=== PATIENT | female | born 1975 | race Caucasian/White ===

== ENCOUNTER 2023-10-26 08:00 | Outpatient (RCR) | payer MEDICAID, SELFPAY ==
--- NOTE | 2023-10-26 09:05 | BH.SGPN.GN ---
Behaviors/Verbalizations/Mental Status: [] Eye contact is good. Motor activity is appropriate. Appearance is casual. Speech is Appropriate. Mood is anxious/depressed. Affect is congruent. Thoughts are linear and logical. No evidence of psychosis. Reviewed daily check in sheet and no reports of suicidal ideations or intent. Client Response/Progress/Benefit: [] Pt participated when prompted. This was pt?s first day in IOP level of care. She briefly introduced herself to the group. Reports struggles with isolation, avoidance, anxiety, and anger. She is hoping that she could increase her ability to regulate her emotions and decrease panic attacks. Shared how mental health struggles have negatively impacted her relationships and her functioning. Peers provided support, encouragement, and feedback for her first day in [facility] which was beneficial. Will continue in [facility] to prevent decompensation, stabilize mood, increase healthy coping, and improve functioning. Narrative Note: []
--- NOTE | 2023-10-26 10:10 | BH.SGPN.GN ---
Behaviors/Verbalizations/Mental Status: []Eye contact is fair. Motor activity is appropriate. Appearance is casual. Speech is Appropriate. Mood is anxious. Affect is congruent. Thoughts are linear and logical. No evidence of psychosis. Client Response/Progress/Benefit: [] Pt was an active participant in activity and taking notes during group discussion. Attentive during psychoeducation and interactive discussion on coping skills included why people use unhealthy skills. Group came up with list of unhealthy coping skills and pt identified personal ones as lashing out and avoidance. Group discussed the effects of how unhealthy coping skills can impact mental health in a negative way. Participated during experiential activity and was able to relate the activity to group topic regarding the benefits of developing strong internal and external support system. Benefited from increased understanding of unhealthy coping skills and the need for developing healthy internal and external coping skills. Pt will continue IOP tx to improve emotion regulation, decrease anxious avoidance, and prevent decompensation.
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
--- NOTE | 2023-10-26 10:25 | BH.MTP ---
Master Treatment Plan Patient Information Program Physician:: Dr. Doherty Primary Therapist:: Tiffanie Devine [facility] Psychiatric Diagnoses Psychiatric Diagnoses:: 1. Bipolar 2 disorder 2. Panic attacks 3. PTSD Diagnosis Code(s):: F31.81 Estimated LOS Estimated LOS (in weeks):: 6 Problem/Goal #1 Problem/Goal #1 Stated Goal:: Client will reduce depressive symptoms, anger/irritability, and anhedonia due to Major Depressive Disorder through Intensive Outpatient Program. Description of Barriers: Pt has history of not responding well to medications. Additional potential barriers is limited healthy supports, agitation, negative thoughts, and anxious thoughts. Functional Impact: The patient is a 48-year-old female with a history of bipolar 2 disorder, depression and alcohol use disorder (sober x 3 years) who was referred to the [facility] behavioral health IOP by a her psychiatric nurse practitioner for worsening symptoms of irritability, erratic mood, anger and depression. She endorses sadness, crying spells, hopelessness, worthlessness, no motivation, isolation and the symptoms have gone on for 16 months. She endorses irritability, decreased concentration, guilt, passive thoughts of . She is a worrier by nature and ruminates negatively. She has panic attacks less than once a week. Objectives Objective #1: Stated Objective: Client will learn and utilize 2-3 healthy coping strategies to manage depressive symptoms. Interventions: Therapist will utilize CBT techniques to assist client with understanding the connection between thoughts, feelings and behaviors. Education will be provided on behavioral activation. Therapist will assist client in learning internal coping strategies to manage depressive symptoms, along with helping client identify triggers. Discharge Criteria: Client will have achieved this goal when can verbalize and has practiced at least 2 healthy coping strategies that successfully manage depressive symptoms. Target Date: 12/07/23 Review Date: 11/23/23 Objective #2: Stated Objective: Client will identify 5 physical warning signs of anger and 5 ways to calm and manage anger. Interventions: Therapist will provide worksheet to track situations, thoughts, feelings, and actions associated with moments of anger, irritation, or disappointment. Through individual therapy and group work will help client explore warning signs to anger and ager management strategies. Discharge Criteria: Client will have met this goal after documenting anger journal for several weeks showing insight into anger triggers, warning signs, and effective ways to cope or manage anger. Target Date: 12/07/23 Review Date: 11/23/23 Problem/Goal #2 Problem/Goal #2 Stated Goal:: Stabilize anxiety level while increasing ability to function on daily basis. Description of Barriers: Pt has history of not responding well to medications. Additional potential barriers is limited healthy supports, agitation, negative thoughts, and anxious thoughts. Functional Impact: The patient is a 48-year-old female with a history of bipolar 2 disorder, depression and alcohol use disorder (sober x 3 years) who was referred to the [facility] behavioral health IOP by a her psychiatric nurse practitioner for worsening symptoms of irritability, erratic mood, anger and depression. She endorses sadness, crying spells, hopelessness, worthlessness, no motivation, isolation and the symptoms have gone on for 16 months. She endorses irritability, decreased concentration, guilt, passive thoughts of . She is a worrier by nature and ruminates negatively. She has panic attacks less than once a week. Objectives Objective #1: Stated Objective: Client will learn and implement 2-3 calming skills to reduce overall anxiety and manage anxiety symptoms. Interventions: Therapist and group sessions will help client identify physiological warning signs of anxiety, increase awareness of thoughts that increase anxiety, and identify behaviors that reinforce anxious symptoms. Group and individual counseling will teach client calming skills to help manage anxious symptoms. Discharge Criteria: Client will have achieved this goal when can verbalize at least 2 calming skills and reports skills successfully help reduce anxious symptoms. Target Date: 12/07/23 Review Date: 11/23/23 Objective #2: Stated Objective: Client will identify and replace 2-3 negative/anxious thinking patterns that reinforce irritability, depression and anxiety. Interventions: Through groups and individual therapy, pt will be provided with education on cognitive distortions, mistaken beliefs, and identifying and combating negative self-talk. Therapist will help pt explore connection between thoughts, feelings, and actions. Discharge Criteria: Pt will be able to identify 2-3 negative/anxious thinking patterns and be able to effectively stop, challenge, or cope with those thoughts. Target Date: 12/07/23 Review Date: 11/23/23
--- NOTE | 2023-10-26 10:40 | BH.COMM ---
Communication Note Communication with Client Communication Note: Met with pt to complete initial paperwork and administer the CSSR-S screening and risk assessment. Per CSSR-S screening and assessment pt is high risk as pt has history of aborted attempt via insulin 10 months ago. Pt states this was during a medication change that significantly increased her suicidal thoughts. Pt states in the past month she has had passive thoughts of , but denies any active suicidal thoughts. Pt reports she does not want to kill herself. No hx of self-harm. Pt states her boyfriend has a firearm, but she does not know where it is located. States she has no interest in firearms and has never considered this as an option. Discussed case with Dr. Garcia and pt will be admitted to [facility] tx with a diagnosis of Bipolar 2, F31.81.
--- NOTE | 2023-10-26 11:15 | BH.SGPN.GN ---
Behaviors/Verbalizations/Mental Status: []Pt alert and oriented, casually dressed and groomed. Eye contact good. Motor activity appropriate. Speech within normal limits. Affect congruent, mood depressed, anxious. Thoughts linear, logical, no signs of hallucinations or delusions. Client Response/Progress/Benefit: [] Pt responded well to session, taking notes and contributing when prompted. Group discussed the different categories of coping skills which included distraction, emotional release, grounding, self-love, and thought challenging. Pt participated in creating a coping skills ?menu? from the five categories of coping skills. Pt's coping skill menu included: exercise, journaling, 5-senses, accomplishment log, and decisional balance tool. Appeared to benefit from increasing repertoire of healthy coping skills. Will continue IOP to improve mood stability, challenge distortions, and prevent decompensation. Narrative Note: []
--- NOTE | 2023-10-28 10:10 | BH.SGPN.GN ---
Behaviors/Verbalizations/Mental Status: [] Eye contact is good. Motor activity is appropriate. Appearance is casual. Speech is Appropriate. Mood is anxious. Affect is congruent. Thoughts are linear and logical. No evidence of psychosis Client Response/Progress/Benefit: [] Client was an active participant during interactive group discussions. Attentive during psychoeducation on the six types of boundaries (physical, emotional, intellectual, sexual, time, and material) AEB note-taking and input in group discussions. Along with peers contributed to interactive discussion on defining what a boundary is in mental health. Client along with peers identified challenges to setting boundaries which included; fear of conflict, being uncomfortable, believing they are being rude or mean, etc. Reports struggling with fear of rejection or feeling she doesn?t deserve it. Client along with peers identified the benefits to setting boundaries such as healthier relationships, stronger sense of self, and improved confidence. Client benefited from increased awareness and insight on the importance/benefit to setting health boundaries. Will continue in IOP to prevent decompensation, increase healthy coping skills, and improve functioning. Narrative Note: []
--- NOTE | 2023-10-28 11:15 | BH.SGPN.GN ---
Behaviors/Verbalizations/Mental Status: [] Eye contact is good. Motor activity is appropriate. Appearance is casual. Speech is Appropriate. Mood is anxious and depressed. Affect is congruent. Thoughts are linear and logical. No evidence of psychosis. Client Response/Progress/Benefit: []Pt responded well to session AEB listening attentively to peers, providing some input, as well as taking notes throughout. Pt contributed throughout psychoeducation on different boundary setting styles. Participated in group discussion brainstorming various strategies for improving healthy boundary settings. Pt reported wanting to work on using positive self-talk to remind herself ?I can be a good friend and set boundaries.? ?Seemed to benefit from increased awareness of how different boundary styles can impact mental health. Will continue IOP tx to prevent use of unhealthy coping skills, increase support, and prevent decompensation. Narrative Note: []
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
--- NOTE | 2023-10-28 12:42 | BH.DR.ITP ---
Initial Treatment Plan Patient Information Visit Information: ADMISSION DATE: EXPECTED LOS: 4-6 weeks Problems/Symptoms Problem #1:: Erratic moods Symptom:: Sadness, crying spells, hopelessness, guilt, irritability, decreased concentration, passive thoughts of , low energy. Problem #2:: Anxiety Symptom:: Worry, rumination, panic attacks, flashbacks, nightmares, avoidance, hypervigilance
--- NOTE | 2023-10-29 10:10 | BH.SGPN.GN ---
Behaviors/Verbalizations/Mental Status: [] Client alert and oriented, casually dressed and groomed. Eye contact good. Motor activity appropriate. Speech within normal limits. Affect congruent, mood depressed/irritable. Thoughts linear, logical, no signs of hallucinations or delusions. Client Response/Progress/Benefit: [] Client was an active participant, AEB taking notes and providing input in group discussions and activities. Attentive during psychoeducation. Client engaged during interactive discussion in which the group defined self-care and discussed its benefits. Group discussed barriers to engaging in self-care. Group members together came up with guilt, time, urge to put others first, not knowing what to do for self-care,and perception that its unproductive as barriers to engage in self care. Client participated in small groups where they worked to identified and challenged common self-care ?myths?. Benefited from increased awareness of self-care, its benefits, and the consequences of not utilizing self-care strategies. Will continue IOP tx to prevent decompensation, stabilize mood, and increase coping strategies. Narrative Note: []
--- NOTE | 2023-10-29 11:10 | BH.SGPN.GN ---
Behaviors/Verbalizations/Mental Status: [] Client alert and oriented, casually dressed and groomed. Eye contact good. Motor activity appropriate. Speech within normal limits. Affect congruent, mood anxious. Thoughts linear, logical, no signs of hallucinations or delusions. Client Response/Progress/Benefit: [] Client engaged participant AEB completing self-assessment of current self care and providing input throughout discussion. Client completed worksheet identifying current self-care practices and what self-care activities client wants to start using. Client selected emotional self-care to begin practicing more consistently. Client plans to do this by expressing emotions in healthier way to her supports. Appeared to benefit from completing the self-care evaluation and gaining insights into current self-care practices, as well as identifying areas in which client would like to improve upon. Client will continue IOP tx to improve distress tolerance, challenge distortions, and prevent decompensation.
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
== END 2023-11-01 23:59 ==
LOC: BHIOP 08:00
PROVIDERS: Referring Provider Psychiatry & Neurology Psychiatry; Visit Provider Psychiatry & Neurology Psychiatry
DX: F31.81 Bipolar II disorder (principal); F41.0 Panic disorder [episodic paroxysmal anxiety]; F43.10 Post-traumatic stress disorder, unspecified; Z79.899 Other long term (current) drug therapy
CPT/HCPCS: 90792; H2012; H2020; S9480; 90837

== ENCOUNTER 2023-11-02 07:16 | Outpatient (RCR) | payer MEDICAID, SELFPAY ==
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
--- NOTE | 2023-11-02 10:10 | BH.SGPN.GN ---
Behaviors/Verbalizations/Mental Status: [] Pt alert and oriented, appropriate grooming/appearance. Eye contact good. Motor activity appropriate. Speech within normal limits. Affect congruent, mood euthymic. Thoughts linear, logical, no signs of hallucinations or delusions. Client Response/Progress/Benefit: [] Pt was an active participant in group discussions. Attentive during psychoeducation. Contributed during interactive discussions in which peers attempted to define crisis. Group identified examples of potential crisis. Group also worked together to identify unhealthy responses to crisis which included lashing out, isolation, self-harm, substance abuse, and sleep disturbances. Pt identified personal warning signs as migraines, yelling, and anxiety attacks. Benefited from increased understanding of crisis and awareness of personal responses to crisis. Pt will continue IOP tx to increasing healthy coping skills, improved self image, and prevent decompensation. Narrative Note: []
--- NOTE | 2023-11-02 11:10 | BH.SGPN.GN ---
Behaviors/Verbalizations/Mental Status: [] Pt alert and oriented, appropriate grooming/appearance. Eye contact good. Motor activity appropriate. Speech within normal limits. Affect congruent, mood euthymic. Thoughts linear, logical, no signs of hallucinations or delusions. Client Response/Progress/Benefit: [] Pt was an active participant in group discussions. Attentive during psychoeducation. In small group pt along with peers developed an active plan for their crisis warning signs. Pt identified three crisis warning signs as well as an action plan for each. One crisis warning sign was feeling snappy. Pt identified coping skills to help with this such as: think positive thoughts, process thoughts, and practice gratitude. Benefited from increased awareness of crisis warning signs and by developing crisis intervention strategies. Will continue in IOP to prevent decompensation and improve daily functioning. Narrative Note: []
--- NOTE | 2023-11-03 09:05 | BH.SGPN.GN ---
Behaviors/Verbalizations/Mental Status: [] Eye contact is good. Motor activity is appropriate. Appearance is casual. Speech is Appropriate. Mood is depressed and anxious. Affect is congruent. Thoughts are linear and logical. No evidence of psychosis. Reviewed daily check in sheet and pt reports 3/5 for suicidal thoughts and 0/5 for intent. Client Response/Progress/Benefit: [] ?Pt participated at times during the group discussion. Attentive. Daily symptom tracker notes 5/5 for anxiety and depression. Brief check-in this AM. Share recent anxiety inducing events and how she responded. States ? I made it through?. Progress noted. Benefited from group support, encouragement, and feedback. Will continue in IOP to maintain safety, stabilize mood, increase healthy coping, and improve functioning. Narrative Note: []
--- NOTE | 2023-11-03 10:10 | BH.SGPN.GN ---
Behaviors/Verbalizations/Mental Status: []Pt alert and oriented, causally dressed and groomed. Eye contact fair. Motor activity appropriate. Speech within normal limits. Affect congruent, mood anxious. Thoughts linear, logical, no signs of hallucinations or delusions. Client Response/Progress/Benefit: [] Pt was actively engaged, providing input, and taking notes throughout session. Connected with the topic of pitfalls and listened to group discussion on internal and external barriers that prevent from choosing a healthier path to mental wellness. Group worked together to identify examples of personal internal pitfalls. Engaged in activity and worked cooperatively with peers. Shared personal pitfalls to include self-doubt, not asking for help, desire to quit, and quick to react. Pt engaged in learning about the difference between external triggers and self-sabotaging behaviors. Seemed to benefit from increased awareness of personal pitfalls. Pt will continue IOP tx to challenge distortions, improve distress tolerance, and prevent decompensation.
--- NOTE | 2023-11-03 11:15 | BH.SGPN.GN ---
Behaviors/Verbalizations/Mental Status: []Pt alert and oriented, casually dressed and groomed. Eye contact good. Motor activity appropriate. Speech within normal limits. Affect congruent, mood dysthymic. Thoughts linear, logical, no signs of hallucinations or delusions. Client Response/Progress/Benefit: [] Pt receptive of session, engaged throughout AEB actively contributing and listening to discussion, as well as taking notes. Pt participated in the experiential activity and processed with group how their emotions, perspective, and reactions positively and negatively impacted the outcome. Pt identified pitfalls they struggle with and shared wanting to work on pitfall of negative thinking by practicing regular thought challenging and taking a step back to process first. Benefited from identifying personal pitfalls and strategies to overcome these pitfalls. Will continue IOP tx to prevent decompensation, improve daily functioning, and improve distress tolerance skills application. Narrative Note: []
--- NOTE | 2023-11-04 10:10 | BH.SGPN.GN ---
Behaviors/Verbalizations/Mental Status: [] Eye contact is good. Motor activity is appropriate. Appearance is casual. Speech is Appropriate. Mood is euthymic. Affect is congruent. Thoughts are linear and logical. No evidence of psychosis. Client Response/Progress/Benefit: [] Pt receptive to session AEB contributing to small group discussion, as well as listening attentively to others, and taking notes. Worked with group to brainstorm the positive and negative aspects of stress on physical and mental health as well as the impact of distress on performance, relationships, and mental health. Pt shared her top stressors to be: maintaining sobriety, health, taking care of her cats, and friends/family. Shared when feeling overwhelmed with stress she tends to lash out, becomes paranoid, and stops doing self-care activities. Benefited from increased awareness of positive and negative stress as well as how stress impact individuals. Will continue in IOP to promote use of healthy coping skills, challenge distortions, and prevent decompensation.
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
--- NOTE | 2023-11-10 09:05 | BH.SGPN.GN ---
Behaviors/Verbalizations/Mental Status: [] Eye contact is good. Motor activity is appropriate. Appearance is casual. Speech is Appropriate. Mood is euthymic. Affect is full. Thoughts are linear and logical. No evidence of psychosis. Reviewed daily check in sheet and pt reports 2/5 for suicidal thoughts and 0/5 for intent. Client Response/Progress/Benefit: [] Pt was an active participant in group discussions. Attentive. Emotion for today is ?anxious? Daily symptom tracker notes 4/5 for anxiety and 3/5 for depression. Pt was unable to identify any wins or healthy habits. States ? I?m inpatient and just want to be better?. Irritability and overwhelmed. Able to identify progress since entering IOP from ? the classes? as well as support, however reports that her irritability and anxiety continue to impact her functioning. She gave recent examples. Benefited form group support, encouragement, and feedback. Will continue in IOP to maintain safety, stabilize mood, and improve functioning Narrative Note: []
--- NOTE | 2023-11-10 10:20 | BH.SGPN.GN ---
Behaviors/Verbalizations/Mental Status: []Pt alert and oriented, casually dressed and groomed. Eye contact fair. Motor activity appropriate. Speech within normal limits. Affect congruent, mood anxious. Thoughts linear, logical, no signs of hallucinations or delusions. Client Response/Progress/Benefit: [] Pt responded well to session, contributing to discussion, and engaged during the activity. Group identified the benefits of change which included: increased confidence, improving mental health, and making progress. Worked with the group to identify barriers to change, which included: uncomfortable emotions such as anxiety and fear, lack of energy, worried about what others will think, and fear of the unknown. Pt participated along with group in activity where they identified and discussed the emotions related to change. Pt connected with peers that one can have many conflicting emotions when faced with change. Benefited from increased awareness and understanding of emotions, benefits, and barriers related to change. Will continue IOP tx to improve distress tolerance, challenge distortions, and prevent decompensation.
--- NOTE | 2023-11-10 11:15 | BH.SGPN.GN ---
Behaviors/Verbalizations/Mental Status: [] Client alert and oriented, casually dressed and groomed. Eye contact good. Motor activity appropriate. Speech within normal limits. Affect congruent, mood content. Thoughts linear, logical, no signs of hallucinations or delusions. Client Response/Progress/Benefit: [] Client responded well to session, attentive throughout. Did well to actively listen and contributed when prompted as group worked to process activity. Pt worked with group to relate the strategies used to overcome barriers in the activity to managing change in own life. Client identified a change they would like to make is improving her relationships. Client identified currently being in precontemplative stage for this particular change. Client said reaching out to her supports and communicating this can help get her to next stage. Appeared to benefit from identifying a change they want and how to progress. Client will continue IOP tx to prevent decompensation, gain healthy coping skills, and improve daily functioning. Narrative Note: []
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
--- NOTE | 2023-11-11 10:00 | BH.SGPN.GN ---
Behaviors/Verbalizations/Mental Status: [] Eye contact is good. Motor activity is appropriate. Appearance is casual. Speech is Appropriate. Mood is depressed and anxnious. Affect is congruent. Thoughts are linear and logical. No evidence of psychosis. Client Response/Progress/Benefit: [] Pt was an active participant in group discussions. Attentive. Participated in and was engaged during experiential activity. Able to relate experiential activity to group topic of FOF. Enagaged during interactive discussion on what failure means to the group in which peers identified and defined failure and Fear of Failure. Engaged as group was able to identify impact of fear of failure on mental health identifying that it can lead to; giving up, isolation, complacency, self-sabotage, being hesitant to ask for help, and the self-fulfilling prophecy. Attentive during interactive discussion on the impact that FOF can have on mental wellness, depression, anxiety, career, relationships, and growth. Benefited from increased awareness of how the role that FOF plays in mental health and decision-making. Will continue in IOP to prevent decompensation, maintain safety, increase healthy coping, and improve functioning. Narrative Note: []
--- NOTE | 2023-11-11 11:05 | BH.SGPN.GN ---
Behaviors/Verbalizations/Mental Status: []Pt alert and oriented, neatly dressed and groomed. Eye contact good. Motor activity appropriate. Speech within normal limits. Affect congruent, mood agitated and anxious. Thoughts linear, logical, no signs of hallucinations or delusions. Client Response/Progress/Benefit: []Pt responded well to session, engaged in the experiential activity and attentive throughout group processing. Pt reported fear of failure has kept pt from being around her family. Pt completed fear of failure worksheet and was able to identify thoughts and behaviors that reinforce personal fear of failure including fear of letting people down, lack of self-care, and fear of being embarrassed. Pt participated in group discussion regarding strategies to overcome fear of failure. Identified wanting to work on communicating with others in a healthier way. Appeared to benefit from increased knowledge of strategies to combat fear of failure and gaining self-awareness. Pt will continue IOP tx to promote mood stability, reduce anger, and improve emotional regulation skills. Narrative Note: []
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
--- NOTE | 2023-11-12 10:10 | BH.SGPN.GN ---
Behaviors/Verbalizations/Mental Status: [] Eye contact is good. Motor activity is appropriate. Appearance is casual. Speech is Appropriate. Mood is anxious, content. Affect is congruent. Thoughts are linear and logical. No evidence of psychosis. Client Response/Progress/Benefit: [] Pt receptive of session, actively engaged throughout AEB taking notes, providing input, and contributing in small group discussion. Appeared to connect with group topic of automatic thoughts and cognitive distortions, as well as the impact of thought patterns on mental health, coping behaviors, and relationships. This particular group is very heavy on psychoeducation and pt appeared to connect with distortions and how they can impact functioning. Identified struggling with predicting the future and disqualifying the positives distortions. Pt appeared to benefit from gaining insight on distorted thinking patterns and how this impacts overall mental health. Will continue IOP to stabilize mood, improve ability to function, reducing anxiety, and prevent decompensation. Narrative Note: []
--- NOTE | 2023-11-12 11:20 | BH.SGPN.GN ---
Behaviors/Verbalizations/Mental Status: []Pt alert and oriented, casually dressed and groomed. Eye contact good. Motor activity appropriate. Speech within normal limits. Affect congruent, mood anxious. Thoughts linear, logical, no signs of hallucinations or delusions Client Response/Progress/Benefit: [] Pt was an active participant during group discussion. Pt was placed in a smaller group and participated in combatting example distortions with peers. Pt was engaged in the smaller group, participated in group interactions to brainstorm answers, and appeared to be comprehending cognitive distortions. Pt could connect with overgeneralization and catastrophizing to negatively impact her. Benefited from gaining further insight and awareness of cognitive distortions as well as practicing ways to reframe and challenge thoughts. Will continue in IOP tx to continue working on fear ladder, challenge negative thoughts, and prevent decompensation.
--- NOTE | 2023-11-17 10:05 | BH.SGPN.GN ---
Behaviors/Verbalizations/Mental Status: []Patient was alert and oriented, casually dressed and groomed. Eye contact was fair, motor activity normal, speech within normal limits. Affect constricted, mood anxious. Thoughts linear, logical, no signs of hallucinations or delusion Client Response/Progress/Benefit: []Pt participated in the group discussions AEB providing input and taking notes. Attentive during psychoeducation Goal Setting. Participated during the discussion on common barriers and pt identified some personal barriers as justifying her excuses and procrastination. Group also identified benefits sense of purpose, improved self-confidence, more motivation for other goals, and improved mental health. Benefited from increased awareness of mental health benefits of goals as well as psychoeducation on SMART goal criteria. Will continue in IOP to improve mood stability, increase distress tolerance skills, and improve self-confidence. Narrative Note: []
--- NOTE | 2023-11-17 11:05 | BH.SGPN.GN ---
Behaviors/Verbalizations/Mental Status: []Pt alert and oriented, casually dressed and groomed. Eye contact good. Motor activity appropriate. Speech within normal limits. Affect congruent, mood anxious. Thoughts linear, logical, no signs of hallucinations or delusions. Client Response/Progress/Benefit: [] Pt was semi-engaged during discussion AEB providing input when prompted, taking notes throughout, and willing to complete the worksheet challenging them to develop a personal SMART goal. Pt chose the goal of driving to the [employer] 5 miles from her house. Pt stated this will help improve her ability to manage sx of anxiety and reduce use of safety behaviors. Pt identified procrastinating as a potential barrier. Identified solution reminding herself of the importance of following through with the goal. Benefited from this group by developing a short-term SMART goal related to mental health. Will continue IOP tx to improve daily functioning, increase healthy coping skills, and prevent decompensation. Narrative Note: []
--- NOTE | 2023-11-17 16:45 | BH.MDN_ITS ---
Multi-Disciplinary Note Note 60-min Individual: Time Started:: 09:00 Date: 11/17/23 Purpose of session/treatment goals addressed:: Purpose of session was to address goals 1 and 2 from MTP. Eye Contact:: Good Motor Activity:: Restless Appearance:: Casual Speech:: Appropriate Mood:: Anxious Affect:: Congruent Thoughts:: Linear, Logical and No evidence of hallucinations/delusions noted Staff Interventions:: thought challenging, CBT techniques, strengths perspective, goal setting and taught coping skills (Created fear ladder) Client Response:: Reported on Thursday and has been going to take her to [employer] to help her with facing some of her fears. Client stated that she was severely anxious for the first 10 minutes then noticed her anxiety slightly improved but felt pretty uncomfortable time. Client reported on Thursday her took her to the mall to walk around in which she felt very anxious but was able to make it through. Client stated she thinks it was helpful to have him with her but he did get to see how her mood is impacting when she has to go to situations like this. Client said on Thursday her was yelling at her which normally would result in her yelling back and starting a big disagreement but instead chose to walk away and go to the basement to calm down. Client stated she is proud of herself for not engaging in unhealthy communication which would make things worse. Client work with therapist to start developing a fear ladder. Client able identify different ideas of what she struggles with mostly related to driving. Client shared she cannot have her phone go below 70% charge or she starts to have extreme anxiety that she will go to get hold of somebody if her phone dies. Client states she often brings an inhaler with her when traveling even though she does not have asthma because it helps her with no when she has it when she has hard time breathing because of her panic attack. Client recognizes these things are safety behaviors which make her feel better in the moment but do not actually resolve the problem. Therapist and client created a rough draft of fear ladder in which client is going to first start with driving to [employer], Park in the parking lot for about [address] home. Therapist encouraged client to do this task several times before moving to the next appointment. Letter tracking how much her anxiety decreases or increases with each step. Risks/Concerns:: Denies suicide ideation, plan, or intention. Future oriented. Progress Toward Goals/Plan:: Progress note of client being able to go into 2 different stores over the weekend with the help of her . Client did report significant anxiety when in the stores but did not have to escape either situation. Progress also noted with client being able to manage her emotions by walking away from the situation and not engaging in adding to the escalation. Client is to continue IOP to increase consistent use of skills, starting working on fear ladder, and prevent decompensation. Time Stopped:: 09:55
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
--- NOTE | 2023-11-18 10:10 | BH.SGPN.GN ---
Behaviors/Verbalizations/Mental Status: [] Pt alert and oriented, casually dressed and groomed. Eye contact good. Motor activity appropriate. Speech within normal limits. Affect congruent, mood anxious and depressed. Thoughts linear, logical, no signs of hallucinations or delusions. Client Response/Progress/Benefit: [] Pt active participant AEB pt providing input throughout group discussion. Pt attentive during psychoeducation about defense mechanisms. Engaged during small group discussions and helped group identify which defense mechanisms were maladaptive, adaptive, or ?somewhere in the bhatti.? Pt worked with small group on identifying how each defense mechanism can impact mental health and gave examples. Pt was engaged during small group discussion. ?Seemed to benefit from gaining awareness about the different defense mechanisms. Will continue in IOP to prevent decompensation, maintain safety, increase healthy coping, and improve functioning. Narrative Note: []
--- NOTE | 2023-11-18 11:15 | BH.SGPN.GN ---
Behaviors/Verbalizations/Mental Status: []Pt alert and oriented, casually dressed and groomed. Eye contact good. Motor activity appropriate. Speech within normal limits. Affect congruent, mood anxious. Thoughts linear, logical, no signs of hallucinations or delusions. Client Response/Progress/Benefit: [] Pt responded well to session, participating in activity and small group discussion. Group reviewed the rest of the defense mechanisms and discussed how these are adaptive, maladaptive, or somewhere in the bhatti. Pt participated in the experiential activity which encouraged pts to draw a castle that portrayed their different defense mechanisms. Pt's defense mechanisms included denial, humor, sublimation, and displacement. Pt shared she is working on managing displacement by trying to pause and deep breathe when she catches herself. Pt listened to computer aided design operator teach different skills to help pt?s cope with or change their defense mechanisms. Pt appeared to benefit from gaining insight to the different defense mechanisms and learning coping skills. Pt will continue IOP tx to promote mood stability, improve anxiety management, and prevent decompensation. Narrative Note: [] Narrative Note: []
--- NOTE | 2023-11-18 12:36 | PCM.BH.PN ---
Progress Note Progress Note: History of Present Illness/Interim History: The patient is a 48-year-old female with a history of bipolar 2 disorder, depression and alcohol use disorder (sober x 3 years) who is seen in follow-up at the [facility] behavioral health IOP. I last saw the patient 3 weeks ago and at that time no medication changes were made as she had just restarted Vraylar. According to the staff the case patient has been making some progress and has been attending consistently and is engaged in the program. The patient feels she is learning valuable skills to help with her mental health issues. She still has though significant anxiety if she tries to drive or even go to stores and sit in the car. Her anxiety which was becoming more severe in the evening is still present but is less severe in the evening than it was several weeks ago. She still is sad and has occasional crying spells and occasional hopelessness but decreased amount of the day. She has much less passive thoughts of than before. She is still a worrier and tends to ruminate negatively. She denies suicidal ideation, plan for suicide, homicidal ideation, hallucinations or delusions or symptoms of xiang. Current Psychiatric Medications: [] Gabapentin 800 mg p.o. 3 times daily (neuropathy); Klonopin 0.5 mg p.o. 3 times daily; Vraylar increased to 4.5 mg p.o. daily about 1 week ago by outpatient provider; Lamictal 200 mg in the morning and 50 mg p.o. at bedtime (x 2 and half months. Mental Status Examination: [] The patient is a 48-year-old female who appears slightly older than stated age and is casually dressed and groomed with good hygiene and seen wearing glasses. She is ambulatory with a normal gait and has no psychomotor agitation or retardation. She is cooperative and pleasant during the interview. Speech is normal rate and rhythm and fluent with no pressure and eye contact is good. Mood is depressed. Affect is mildly constricted. Thought process is goal-directed and organized. Thought content: There is still evidence of occasional passive thoughts of . There is no evidence of suicidal ideation, homicidal ideation, hallucinations, delusions or xiang. Reality testing is intact. Impulsivity is moderate. Judgment is intact. Insight: Fair and improving. Diagnoses: [] 1. Bipolar 2 disorder 2. Panic attacks 3. PTSD 4. Primary support, financial and work issues 5. Neuropathy, chronic pain, restless leg syndrome, PAUL 6. Status post gastric bypass Plan: [] The patient will continue the IOP and behavioral health at [facility] as the structure, support, education and group therapy will hopefully prevent worsening of the patient's symptoms. She felt safe during the interview and if it anytime she does not feel safe she agrees to let us know or go to the emergency room. The risk, options, possible complications and side effects of the medications were again discussed with the patient and she understands and accepts these. No medication changes were made today as her Vraylar was increased only 1 week ago. She will continue to follow-up with her outpatient providers and I will see the patient in follow-up in 2 weeks.
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
--- NOTE | 2023-11-19 09:00 | BH.SGPN.GN ---
Behaviors/Verbalizations/Mental Status: [] Eye contact is good. Motor activity is appropriate. Appearance is casual. Speech is Appropriate. Mood is anxious. Affect is congruent. Thoughts are linear and logical. No evidence of psychosis. Reviewed daily check in sheet and pt reports 1/5 for suicidal thoughts and 0/5 for intent. Baseline. Client Response/Progress/Benefit: [] Pt was an active participant in group discussions. Attentive. Pt attempted to work on her fear ladder yesterday which involved driving to [employer]. She elaborated anxiety related to shopping centers ([employer], [employer], etc) and how this has impacted her ability to grocery shop and obtain items for herself. Identifies intense anxiety and frustration at these locations. She did complete her goal which was to drive into the parking lot of [employer]. Admits that she struggled with this and was unable to complete this goal on her frist attempt. Utilized skills and attempted again which she completed. She was also able to make it through her son's sporting event. Progress noted. Benefited from group support, encouragement, and feedback. Will continue in IOP to prevent decompensation, stabilize mood, and improve functioning. Narrative Note: []
--- NOTE | 2023-11-19 10:10 | BH.SGPN.GN ---
Behaviors/Verbalizations/Mental Status: []Pt alert and oriented, neatly dressed and groomed. Eye contact good. Motor activity appropriate. Speech within normal limits. Affect congruent, mood euthymic. Thoughts linear, logical, no signs of hallucinations or delusions Client Response/Progress/Benefit: [] Pt was an active participate AEB listening attentively to others, participating in group discussions, and taking notes throughout. Participated as the group identified ways we can hurt others or sabotage self by not regulating our emotions. Participated with peers to identified ways emotions impact communication which pt shared she can lash out and shut down when she feels strong emotions. Participated during group activity. Pt benefited from session by gaining an increased understanding on the importance of managing emotions to improve daily functioning. Will continue IOP tx to promote mood stability, reduce avoidance, and improve daily functioning. ??? Narrative Note: []
--- NOTE | 2023-11-19 11:10 | BH.SGPN.GN ---
Behaviors/Verbalizations/Mental Status: []Pt alert and oriented, casually dressed and fairly groomed. Eye contact good. Motor activity appropriate. Speech within normal limits. Affect congruent, mood euthymic. Thoughts linear, logical, no signs of hallucinations or delusions. Client Response/Progress/Benefit: [] Pt engaged in session AEB Pt listening attentively to peers and providing input. Attentive during psychoeducation on 4 zones of regulation. Pt able to identify feelings and behaviors for each zone. Pt identified coping skills one can use to support self in each zone. Identified being in the green zone today wants to stay in this zone, so pt wants to continue being productive today and start writing down her mental health wins. ?Benefited from increased education on zones of regulation or stages of alertness for emotions and healthy coping skills to use for each zone. Will continue IOP tx to promote mood stability, increase use of healthy coping skills, and improve daily functioning. ??? Narrative Note: []
--- NOTE | 2023-11-23 09:05 | BH.SGPN.GN ---
Behaviors/Verbalizations/Mental Status: [] Eye contact is good. Motor activity is appropriate. Appearance is casual. Speech is Appropriate. Mood is anxious and depressed. Affect is congurent. Thoughts are linear and logical. No evidence of psychosis. Reviewed daily check in sheet and no reports of suicidal ideations or intent. Client Response/Progress/Benefit: [] Pt was an active participant in group discussion. Attentive. Daily symptom tracker notes 5 for irritability and /5 for depression. She talked at length regarding exposure treatment this weekend in which she visits three large shopping retailers. Briefly shared his panic and significant anxiety associated with shopping or even walk into these stores. Pt had support person with her to help manage thoughts, anxiety, and panic as she visited these stores. Overall she is proud of herself. Also appreciates that her support took on an active role in her mental health rather than telling me to talk to a counselor and figure it out. Progress noted per pt report. Benefited from group support, encouragment, and feedback. Will continue in IOP to prevent decompensation, stabilize mood, increase healthy coping, and improve functioning. Narrative Note: []
--- NOTE | 2023-11-23 10:15 | BH.SGPN.GN ---
Behaviors/Verbalizations/Mental Status: []Pt alert and oriented, neatly dressed and groomed. Eye contact good. Motor activity appropriate. Speech within normal limits. Affect congruent, mood calm. Thoughts linear, logical, no signs of hallucinations or delusions. Client Response/Progress/Benefit: [] Pt was attentive during psychoeducation and participated in group activity. Group discussed what contributes to a person?s perspective and how perspective can positively or negatively impact mental health treatment. Pt reflected on their perspective today and how it is impacting them. Pt shared their perspective today is ?in between? as pt is more hopeful, but she used to be very pessimistic. Pt stated she can now see the benefit of getting out and being social, but pt used to isolate and fear ?being dumb? in group. Pt appeared to benefit from increasing awareness of different perspectives and how they can affect mental health. Pt will continue IOP tx to promote use of healthy coping skills, improve daily functioning, and increase distress tolerance. ?? Narrative Note: []
--- NOTE | 2023-11-23 11:15 | BH.SGPN.GN ---
Behaviors/Verbalizations/Mental Status: []Pt alert and oriented, casually dressed and groomed. Eye contact fair to good. Motor activity appropriate. Speech within normal limits. Affect congruent, mood anxious and euthymic. Thoughts linear, logical, no signs of hallucinations or delusions. Client Response/Progress/Benefit: []Pt was attentive and contributed to group discussion. Pt worked with group to identify strategies that can help with challenging negative perspective. Pt completed strengths exploration worksheet, identifying love of learning, humor, and curiosity as personal strengths. Pt able to acknowledge how these strengths are helping pt and can continue to help pt in mental health journey. Pt identified wanting to work on leaning on strength of love of learning to begin practicing more mindfulness/grounding. Benefited from identifying personal strengths and strategies for enhancing use of identified strengths. Pt will continue IOP tx to promote coping skill application, improve mood stability, and prevent decompensation. Narrative Note: []
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
--- NOTE | 2023-11-25 10:10 | BH.SGPN.GN ---
Behaviors/Verbalizations/Mental Status: [] Eye contact is good. Motor activity is appropriate. Appearance is casual. Speech is Appropriate. Mood is euthymic. Affect is congruent. Thoughts are linear and logical. No evidence of psychosis. Client Response/Progress/Benefit: [] Pt responded well to session AEB contributing to small group discussion, taking notes, and listening attentively to others. Group defined anger and discussed the benefits of managed anger and anger as a secondary emotion. Pt shared perspective on personal benefits of anger as advocating for self. Pt completed worksheet on anger triggers and personal warning signs of anger. Pt identified a common trigger for her is when a person doesn't follow through with what is asked of them. Pt able to create her personal anger cycle. Appeared to benefit from increased knowledge of the anger cycle as well as personal triggers. Will continue IOP to continue working on fear ladder, improve emotion regulation, and prevent decompensation.
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
--- NOTE | 2023-11-26 10:10 | BH.SGPN.GN ---
Behaviors/Verbalizations/Mental Status: [] Eye contact is good. Motor activity is appropriate. Appearance is casual. Speech is Appropriate. Mood is euthymic. Affect is congruent. Thoughts are linear and logical. No evidence of psychosis. Client Response/Progress/Benefit: [] Pt an active participant in group discussions. Participated during interactive discussion on defining conflict (internal/external) and possible benefits to conflict. Attentive during psychoeducation on conflict styles (Avoidant, Accommodating, Competing, Cooperative) and engaged during interactive discussion in which peers identified the benefits and consequences to each conflict style. Pt identified their primary conflict style as competing. Pt stated I would not let others speak. I was aggressive towards everything Shift the blame to others Benefited from increased awareness of the impact of conflict styles in mental health. Will continue in IOP tx to prevent decompensation, stabilize mood, and increase healthy coping skills. Narrative Note: []
--- NOTE | 2023-11-26 11:10 | BH.SGPN.GN ---
Behaviors/Verbalizations/Mental Status: []Eye contact is good. Motor activity is appropriate. Appearance is neat. Speech is Appropriate. Mood is anxious, content. Affect is congruent. Thoughts are linear and logical. No evidence of psychosis. Client Response/Progress/Benefit: [] Pt was an active participant in group discussions and activity. Engaged with peers in activity and identifying healthy ways to approach each conflict scenario. Group discussed various conflict resolution skills that can be useful in addressing conflict outside of IOP. Benefited from practicing and learning conflict resolution skills during group activity. Able to identify areas pt wants to work on to improve how pt manages conflict both internally and externally. Expressed wanting to work on their defensiveness and ?making excuses for my mood and behavior? by pausing and stepping back before responding. Will continue in IOP to stabilize mood, combat distortions, and promote gains made with exposure goals. Narrative Note: []
--- NOTE | 2023-12-01 09:05 | BH.SGPN.GN ---
Behaviors/Verbalizations/Mental Status: [] Eye contact is good. Motor activity is appropriate. Appearance is casual. Speech is Appropriate. Mood is depressed and irritable. Affect is congruent. Thoughts are linear and logical. No evidence of psychosis. Reviewed daily check in sheet and no reports of suicidal ideations or intent. Client Response/Progress/Benefit: [] Pt was an active participant in group discussions. Attentive. Daily symptom tracker notes 5/5 for anxiety and 3/5 for irritability. She reports being overwhelmed due in large part to trouble saying no. Awareness of difficulty setting boundaries and people pleasing which in the long run ends up significantly impacting her stress and mental health. Credits IOP with providing increase insight into how taking on too many responsibilities and exacerbated anger and emotion dysregulation. Able to identify mental health wins and healthy habits. Improved communication with support and has been completing tasks. Benefited from group support, encouragement, and feedback. Will continue in IOP to prevent decompensation, stablize mood, and improve functioiong. Narrative Note: []
--- NOTE | 2023-12-01 10:10 | BH.SGPN.GN ---
Behaviors/Verbalizations/Mental Status: []Pt alert and oriented, casually dressed and groomed. Eye contact good. Motor activity appropriate. Speech within normal limits. Affect congruent, mood anxious and content. Thoughts linear, logical, no signs of hallucinations or delusions. Client Response/Progress/Benefit: []Pt was an active participant in group discussion and activity. Attentive during psychoeducation. Along with peers, pt was able to identify barriers to taking action in their life. Identified several symptoms and stressors that pt feels are holding them back from progress such as driving anxiety, people pleasing tendencies, and fear of being alone. Stated these things have kept pt from being able to prioritize herself and meet her needs. Pt shared that she wants to begin addressing her driving anxiety. Benefited from increased self-awareness of obstacles. Will continue IOP tx to prevent decompensation, improve ability to complete exposure goals, and maintain mood stability. Narrative Note: []
--- NOTE | 2023-12-01 11:10 | BH.SGPN.GN ---
Behaviors/Verbalizations/Mental Status: []Pt alert and oriented, casually dressed and groomed. Eye contact good. Motor activity appropriate. Speech within normal limits. Affect congruent, mood euthymic. Thoughts linear, logical, no signs of hallucinations or delusions. Client Response/Progress/Benefit: [] Pt responded well to session, taking notes and participating in worksheet discussion. Pt connected with the discussion on motion vs action steps, and this helped pt learn how to set goals differently. Pt set a goal to decrease anxious avoidance. Pt identified motion steps including limiting daily phone usage and picking places to drive that are a little further away. Pt also made action steps which included decreasing screen time each day by 5 minutes until she is at a total of 2 hours a day. Additional step is going to stores/places that are 5 miles away. Appeared to benefit from identifying a small goal to benefit mental health. Client has made significant treatment progress and will discharge from [facility] today.
--- NOTE | 2023-12-02 10:10 | BH.SGPN.GN ---
Behaviors/Verbalizations/Mental Status: []Eye contact is good. Motor activity is appropriate. Appearance is neat. Speech is Appropriate. Mood is anxious and euthymic. Affect is congruent. Thoughts are linear and logical. No evidence of psychosis Client Response/Progress/Benefit: [] Pt was an active participant in group discussion and experiential activity. Attentive during psychoeducation on resilience. Participated during interactive discussion with peers on the definition of resilience. Able to relate experiential activity of group juggle to topics of resilience. Group worked together to identify what can impact one's ability to be resilient which included past experiences, trauma, toxic support system, lack of resources, and current mental/physical health state. Worked well with peers in small group in which they identified factors that contribute to building resilience. Pt?s group worked on the importance of keeping things in perspective. Benefited from increased awareness of resilience and the factors that contribute to building resilience. Will continue in IOP to improve emotion regulation, work fear ladder, and prevent decompensation.
--- NOTE | 2023-12-02 11:10 | BH.SGPN.GN ---
Behaviors/Verbalizations/Mental Status: []Pt alert and oriented, casually dressed and groomed. Eye contact good. Motor activity appropriate. Speech within normal limits. Affect congruent, mood content. Thoughts linear, logical, no signs of hallucinations or delusions. Client Response/Progress/Benefit: []Pt responded well to session AEB completing the resilience worksheet provided. Pt participated in the discussion and worked cooperatively with group to identify strategies to enhance each of the components discussed. Pt reports belief they already use resilience traits of??making connections and accepting that change is a part of life.? Pt stated they would like to continue to develop resilience trait of ?taking decisive action? as pt feels pt would benefit from choosing something and being confident about her decision. Pt seemed to benefit from discussing strategies for improving personal resilience and identifying resilience traits pt already possesses. Will continue IOP tx to promote gains and reinforce healthy coping skills. ? Narrative Note: []
--- NOTE | 2023-12-02 12:26 | PCM.BH.PN ---
Progress Note Progress Note: History of Present Illness/Interim History: The patient is a 48-year-old female with a history of bipolar 2 disorder, depression panic attacks, PTSD and alcohol use disorder (sober x 3 years) who is seen in follow-up at the [facility] behavioral health IOP. Last saw the patient 2 weeks ago and at that time no medication changes were made. According to the staff the patient has been consistently attending the program and has been engaged in the program. She has made good progress but still has some anxiety about driving. She remains sober from alcohol. She wakes up sometimes at night several times a night and is only getting 4 to 5 hours of sleep total per night in the last week and feels she is then tired during the day. She is not using any caffeine or nicotine. The patient admits that she does have possible sleep apnea and she has known restless leg syndrome that could be making this worse also but she feels she is also worrying and this is causing her to be sleeping poorly. She has much less sadness now and much less passive thoughts of . She denies suicidal ideation, plan for suicide, homicidal ideation, hallucinations, delusions or symptoms of hypomania or xiang. Current Psychiatric Medications: [] Gabapentin 800 mg p.o. 3 times daily (for neuropathy); Klonopin 0.5 mg p.o. 3 times daily; Vraylar 4.5 mg p.o. daily (increased 3 weeks ago); Lamictal 200 mg in the morning and 50 mg at lunchtime (x 3 months). Mental Status Examination: [] The patient is a 48-year-old female who appears slightly older than stated age and is casually good dressed and groomed with good hygiene. She has no psychomotor agitation or retardation. She is cooperative and pleasant during the interview. Eye contact is good and speech is normal rate and rhythm and fluent with no pressure. Mood is slightly anxious. Affect is full and normal. Thought process is goal-directed and organized. Thought content: There is evidence of occasional passive thoughts of but no evidence of suicidal ideation, homicidal ideation, hallucinations, delusions or xiang. Reality testing is intact. Impulsivity is moderate. Judgment is intact. Insight is good. Diagnoses: [] 1. Bipolar 2 disorder 2. Panic attacks 3. PTSD 4. Primary support, financial and work issues 5. Neuropathy, restless leg syndrome, obstructive sleep apnea and chronic pain 6. Status post gastric bypass Plan: [] The patient will discharge today from the [facility] as she has made significant progress and she will continue to follow-up with her outpatient providers. She agrees to increase her Klonopin to 0.5 mg twice daily and 1 mg p.o. at bedtime to help with her restless leg syndrome and recent worsening of insomnia. Refill was given for her Vraylar prescription also at 4.5 mg p.o. daily. She has an appoint with her with her neurologist tomorrow to discuss the sleep issues and the restless leg syndrome. She will continue to follow-up with her outpatient providers. She felt safe during the interview and if it anytime she does not feel safe she agrees to go to the emergency room or to let us know.
== END 2023-12-02 23:59 ==
LOC: BHIOP 07:16
PROVIDERS: Referring Provider Psychiatry & Neurology Psychiatry; Visit Provider Psychiatry & Neurology Psychiatry
DX: F31.81 Bipolar II disorder (principal); F41.0 Panic disorder [episodic paroxysmal anxiety]; F43.10 Post-traumatic stress disorder, unspecified; G60.9 Hereditary and idiopathic neuropathy, unspecified; G89.29 Other chronic pain; G25.81 Restless legs syndrome; G47.33 Obstructive sleep apnea (adult) (pediatric); Z79.899 Other long term (current) drug therapy
CPT/HCPCS: 99214; H2012; H2020; S9480; 90834; 90837

== ENCOUNTER 2023-12-03 07:14 | Outpatient (RCR) | payer MEDICAID, SELFPAY ==
--- NOTE | 2023-12-03 09:02 | BH.SGPN.GN ---
Behaviors/Verbalizations/Mental Status: [] Client alert and oriented, casual appearance. Eye contact good. Motor activity appropriate. Speech within normal limits. Affect congruent, mood euthymic and positive. Thoughts linear, logical, no signs of hallucinations or delusions. Reviewed client's symptom tracker, no risk for suicidal ideation, plan, or intent. Client Response/Progress/Benefit: [] Client responded well to session AEB listening to others and sharing thoughts/feelings. Client reported mental positive as engaging in self-care by having dry needling done yesterday. Client noted additional mental positive as driving to target incident in the parking lot to practice her anxiety exposure goals. Client stated after send the parking lot for a little bit and being able to manage her anxiety she then went to [facility] and sat in that parking lot for a little bit as an additional exposure goal. Client noted current stressor as her sugar dropping yesterday which led to a panic attack because she could not get her sugar up for over an hour which was making her nervous and anxious since she is diabetic. Client can note significant treatment progress since starting IOP. Stated that she is sad because she is going to miss the program but realizes that she has made a lot of gains with decrease avoidance of anxiety provoking things, less snappy towards others, and able to manage her anger more effectively. Appeared to benefit from support from peers. Client will discharge from [facility] today. Narrative Note: []
--- NOTE | 2023-12-03 10:10 | BH.SGPN.GN ---
Behaviors/Verbalizations/Mental Status: []Eye contact is good. Motor activity is appropriate. Appearance is casual. Speech is Appropriate. Mood is euthymic. Affect is full. Thoughts are linear and logical. No evidence of psychosis. Client Response/Progress/Benefit: [] Pt was an engaged participant AEB listening attentively to others, taking notes, and providing feedback in small group discussions. Attentive during psychoeducation AEB by note taking and providing some input. Pt worked along with peers in small groups to define inappropriate guilt and appropriate guilt. Interactive discussion on examples of both inappropriate and appropriate guilt. Pt able to connect impact inappropriate guilt can have on MH. Benefited from increased awareness of guilt and the differences between appropriate and inappropriate guilt. Plan is to discharge successfully from [facility] today. Narrative Note: []
--- NOTE | 2023-12-03 14:34 | BH.DS ---
Discharge Summary Demographics Date of Admission:: 10/26/23 Discharge Date: 12/03/23 Presenting Problems at Admission:: The patient is a 48-year-old female with a history of bipolar 2 disorder, depression and alcohol use disorder (sober x 3 years) who was referred to the [facility] behavioral health IOP by a her psychiatric nurse practitioner for worsening symptoms of irritability, erratic mood, anger and depression. She endorses sadness, crying spells, hopelessness, worthlessness, no motivation, isolation and the symptoms have gone on for 16 months. She endorses irritability, decreased concentration, guilt, passive thoughts of . She is a worrier by nature and ruminates negatively. She has panic attacks less than once a week. Discharge Diagnoses:: 1. Bipolar 2 disorder F31.81 2. Panic attacks 3. PTSD Reason for Discharge:: Pt has made significant treatment progress AEB pt's improved daily functioning, improved ability to face anxiety situations, and decreased anger outbursts. Treatment Progress During Treatment & Response: Progress noted with client reporting success of completing numerous anxiety exposure goals over the last 4 weeks. Client stated she has been able to drive independently a little further than before and go into a couple stores on her own. Client has also had to drive in the rain independently and didn't have to nail puller due to having a panic attack. Client stated she hasn't had an anger outburst towards another person in over 3 weeks. Reviewed DSM 5 cross-cutting measure scores with client at discharge and scores indicated slight progress compared to admission. DSM 5 shows a 13% reduction in depression, 8% reduction in anxiety, and an overall 19% reduction in mental health symptoms. Client stated she believes she has improved much more than the scores indicate and she thinks she scored the assessment based on her anxiety with upcoming driving trip to [place]. Client has reported over the last couple weeks improved mood, improved relationship with son and fianc? because of decreased anger, and starting to conquer her anxiety with driving. Issues Still to be Addressed:: Client could benefit from continuing to work on her fear ladder. Client able to conquer several steps from her ladder, but could benefit for outpatient therapist helping her move to the next step. Continued work on distress tolerance, communication skills, and setting boundaries. Discharge Recommendations/Instructions:: Client is to continue seeing Dr. Mcgee for medication management until she sees Dr. Byers in January. Client has made a call to [facility] for counseling, but is waiting for a return call. Client will start [facility] aftercare program on 12/24/23. Discharge Handout
--- NOTE | 2023-12-03 14:41 | BH.MDN_ITS ---
Multi-Disciplinary Note Note 45-min Individual: Time Started:: 11:10 Date: 12/03/23 Purpose of session/treatment goals addressed:: Purpose of session was to review treatment progress, complete maintenance plan, and complete aftercare plans. Eye Contact:: Good Motor Activity:: Appropriate Appearance:: Casual Speech:: Appropriate Mood:: Euthymic Affect:: Full Thoughts:: Linear, Logical and No evidence of hallucinations/delusions noted Staff Interventions:: CBT techniques, discharge planning, strengths perspective, reviewed DSM-5 and other (maintenance plan) Client Response:: Client reported she is looking to progress and starting IOP with less avoidance of anxious provoking situations, decreased depression throughout the day, significant decrease in anger outburst, and improved emotion regulation. Client stated she does still struggle in the evening with feeling down and having more anxiety which can impact her sleep negatively. Client reported she realizes after completing the DSM-V cross cutting measures earlier this morning she was rating herself based on the evening which is not a true reflection of her actual treatment progress. Client stated she knows she still has lots of work what to do in regards to decreasing her anxious avoidance by continuing to work on her fear ladder. Client stated she was able to drive to [employer] on her own and sit in the parking lot and then drove to [employer] and sat in the parking lot by herself. Client reported felt anxious but overall able to manage it and no panic attacks. Client reported she is also been doing better with being more open minded listening to others versus being quick to anger and go off on them. Client stated other people have noticed a significant decrease in her impulsive anger response. Client reported this is helped her relationship with her daughter, her son, and her boyfriend. Client reported it has been since starting the program that she has had a significant emotional meltdown and has not thrown anything in over 6 weeks. Client and therapist work together to identify her maintenance plan. Client able to identify triggers, warning signs, self-care activities, and healthy coping skills. Also identified and discussed areas that she would like to work on with her next outpatient therapist. Client stated she is going to call a local [place] counseling agency that was provided to her by out [facility] to set up individual counseling. Client is heading to [place] next week for vacation and is feeling anxious but knows that she can do it. Risks/Concerns:: Denies suicidal ideation, plan, or intention. Progress Toward Goals/Plan:: Progress note with client reporting decrease anxious avoidance as evidenced by her doing daily exposure goals using her fear ladder. Client has been able to drive independently to several stores and sit in the parking lot on her own. Client has been working on pushing herself to expose herself to the anxiety provoking situations which over time has made things better. Client stated she knows she still has lots of work to do and will continue to work on her fear hierarchy with her next outpatient therapist. Client's anger outbursts have significantly decreased. About client's DSM-V cross cutting scores at discharge on indicate a slight decrease in her mental symptoms per client's report she recognizes she filled out the assessment based on how she does in the evening which she recognizes is not a true reflection of her actual progress. Plan is for client to discharge from [facility] today. Client is to establish with outpatient counseling today. Client has outpatient medication management with Dr. Mcgee at the [facility] and is moving to Dr. Byers for psychiatry in March. Client will start [facility] aftercare program on 12/24/2023. Time Stopped:: 12:00
== END 2023-12-03 12:29 | disposition home or self-care (01) ==
LOC: BHIOP 07:14
PROVIDERS: Referring Provider Psychiatry & Neurology Psychiatry; Visit Provider Psychiatry & Neurology Psychiatry
DX: F31.81 Bipolar II disorder (principal); F41.0 Panic disorder [episodic paroxysmal anxiety]; F43.10 Post-traumatic stress disorder, unspecified
CPT/HCPCS: H2012; S9480; 90834

== ENCOUNTER 2023-12-24 13:52 | Outpatient (RCR) | payer MEDICAID, SELFPAY ==
--- NOTE | 2023-12-24 14:00 | BH.SGPN.GN ---
Behaviors/Verbalizations/Mental Status: []Pt alert and oriented, casually dressed and groomed. Eye contact good. Motor activity appropriate. Speech within normal limits. Affect congruent, mood content. Thoughts linear, logical, no signs of hallucinations or delusions. Client Response/Progress/Benefit: []Pt receptive of session, engaged throughout. Pt has been consistent with medications but did not have outpatient appointments this week. Pt reported using coping skills such as: practicing self-care, deep breathing, and positive self-talk. Receptive of discussion on ?Chapters of my life? poem. Pt contributed to the discussion of the different chapters one may go through and how they connect with current mental health progress. Pt reflected and identified their current chapter as 3/4 because I'm more confident at not falling into my old ways, but I still do. Identified that taking more time to engage in self-care and reach out to supports would help with getting to the next chapter. Pt seemed to benefit from support from peers and increasing understanding of ?Chapters of my life?. Will continue IOP aftercare to maintain gains and prevent decompensation. Narrative Note: []
--- NOTE | 2023-12-24 14:00 | BH.COMM ---
Communication Note Communication with Client Communication Note: Patient completed IOP and presents today to start relapse prevention group which meets once weekly (1.5 hours) for 8 weeks. Case discussed with Dr. Doherty with plan to admit with dx of F31.52
--- NOTE | 2023-12-24 15:31 | BH.MTP_ITS ---
Master Treatment Plan Patient Information Program Physician:: Dr. Doherty Primary Therapist:: Tiffanie Devine [facility] Psychiatric Diagnoses Psychiatric Diagnoses:: 1. Bipolar 2 disorder F31.81 2. Panic attacks 3. PTSD Diagnosis Code(s):: F31.81 Estimated LOS Estimated LOS (in weeks):: 8 Problem/Goal #1 Problem/Goal #1 Stated Goal:: client will maintain or see a reduction in symptoms AEB client score on the DSM 5 cross-cutting measure and improve client's daily functioning. Objectives Objective #1: Stated Objective: Client will continue to consistently apply healthy coping skills to maintain progress made in IOP tx. Interventions: Through group therapy, client will review warning signs and triggers as well as healthy coping skills learned in IOP tx to successfully maintain gains while transitioning into outpatient therapy. Discharge Criteria: Client will have accomplished this goal when client's score on the DSM-5 cross-cutting measure has maintained or reduced over a 8 week period. Target Date: 02/18/24 Review Date: 01/21/24 Objective #2: Stated Objective: Client will learn and utilize 2-3 maintenance strategies to prevent decompensation from original IOP DSM-5 scores. Interventions: Through group therapy, client will be provided with education on healthy maintenance behaviors, relapse prevention techniques, and healthy coping strategies. Discharge Criteria: Client will have accomplished this goal when can report using at least 2 maintenance skills to prevent decompensation compared to original IOP DSM-5 scores. Target Date: 02/18/24 Review Date: 01/21/24
== END 2024-01-02 23:59 ==
LOC: BHOG 13:52
PROVIDERS: Referring Provider Psychiatry & Neurology Psychiatry; Visit Provider Psychiatry & Neurology Psychiatry
DX: F31.81 Bipolar II disorder (principal); F41.0 Panic disorder [episodic paroxysmal anxiety]; F43.10 Post-traumatic stress disorder, unspecified
CPT/HCPCS: 90853

== ENCOUNTER 2024-01-05 07:13 | Outpatient (RCR) | payer MEDICAID, SELFPAY ==
--- NOTE | 2024-01-07 14:00 | BH.SGPN.GN ---
Behaviors/Verbalizations/Mental Status: []Pt alert and oriented, casually dressed and groomed. Eye contact good. Motor activity appropriate. Speech within normal limits. Affect congruent, mood content, anxious. Thoughts linear, logical, no signs of hallucinations or delusions. Client Response/Progress/Benefit: [] Pt receptive of session, engaged throughout. Pt shared she has appointments scheduled outpatient therapist and psychiatrist, and has been consistent with meds. Reports the coping skills used throughout the week included: self-care, reaching out to supports, and taking regular walks. Receptive of discussion on the three components of the Wellness [place] (social, mental health, and physical) and the importance of balancing each of these areas. Pt contributed to the discussion on the variables impacting each area of wellness including: biology, environment, attitude, behavior, technology, and social support network. Completed an assessment reviewing personal wellness in each pillar of the wellness triangle. Identified wanting to work on mental wellness by continuing to use thought challenging and grounding skills each day. Pt seemed to benefit from support from peers and increasing understanding of the relationship between different areas of wellness. Will remain in the aftercare program to maintain gain and prevent decompensation. Narrative Note: []
--- NOTE | 2024-01-28 14:15 | BH.DS_ITS ---
Discharge Summary Demographics Date of Admission:: 12/24/23 Discharge Date: 01/28/24 Presenting Problems at Admission:: Pt discharged from [facility] tx and transitioned to [facility] aftercare to maintain gains pt made in [facility] and to reinforce healthy coping skills. At admission to [facility] aftercare, pt continued to report symptoms of mild depression and anxiety, but of reduced intensity. 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 Discharge Diagnoses:: 1. Bipolar 2 disorder F31.81 2. Panic attacks 3. PTSD Reason for Discharge:: Client stated she needs to discharge from [facility] Aftercare program because her neighbor was injured a couple weeks ago and client has been helping take care of her neighbor. Client reported due to not knowing when the neighbor will be ready to be independent client stated it is in her best interest to discharge from Aftercare at this time. Treatment Progress During Treatment & Response: Progress noted with client reporting continuing to work on her anxiety about driving which she noted is improving. Client continues to report use of healthy calming skills like breathing and grounding tools to help manage anxiety and anger. Client reports she has been able to continue to decrease anger outbursts significantly. Client reports decrease in depression, anxiety, and improved mood stability. Issues Still to be Addressed:: Client to continue working on distress tolerance, fear ladder with driving, and open communication with family. Discharge Recommendations/Instructions:: Client is to continue seeing Dr. Byers for medication management. Client recently became established at [facility] for individual counseling. Discharge Handout
== END 2024-01-28 09:12 | disposition home or self-care (01) ==
LOC: BHOG 07:13
PROVIDERS: Referring Provider Psychiatry & Neurology Psychiatry; Visit Provider Psychiatry & Neurology Psychiatry
DX: F31.81 Bipolar II disorder (principal); F41.0 Panic disorder [episodic paroxysmal anxiety]; F43.10 Post-traumatic stress disorder, unspecified
CPT/HCPCS: 90853